=== PATIENT | female | born 1990 | race Caucasian/White ===

== ENCOUNTER 2024-02-27 12:46 | Outpatient (CLI) | payer MEDICAID | END 2024-02-27 23:59 | disposition home or self-care (01) | LOC: RAD 12:46 | PROVIDERS: ATTEND Family Medicine | DX: O09.92 Supervision of high risk pregnancy, unspecified, second trimester (principal); Z3A.19 19 weeks gestation of pregnancy | CPT/HCPCS: 76805 ==

== ENCOUNTER 2024-04-18 11:15 | Emergency (ER) | payer MEDICAID ==
[~2024-04-18] VITALS: Ht 160 cm; Wt 64.5 kg
[2024-04-18 11:19] VITALS: BP 106/62; PULSE 75; O2SAT 98
[2024-04-18 14:35] VITALS: RESP 17; TEMP 98
== END 2024-04-18 14:36 | disposition home or self-care (01) ==
LOC: ER 11:16
DX: O26.893 Other specified pregnancy related conditions, third trimester (principal); S93.401A Sprain of unspecified ligament of right ankle, initial encounter; F17.200 Nicotine dependence, unspecified, uncomplicated; Z88.8 Allergy status to other drugs, medicaments and biological substances; X50.1XXA Overexertion from prolonged static or awkward postures, initial encounter; Y93.89 Activity, other specified; Y92.89 Other specified places as the place of occurrence of the external cause; Y99.8 Other external cause status
CPT/HCPCS: 73610; 99283; A6449

== ENCOUNTER → 2024-04-24 | Outpatient (CLI) | payer MEDICAID | END | disposition home or self-care (01) | LOC: RAD 07:47 | PROVIDERS: ATTEND Family Medicine | DX: O09.92 Supervision of high risk pregnancy, unspecified, second trimester (principal); Z3A.27 27 weeks gestation of pregnancy | CPT/HCPCS: 76815 ==